=== PATIENT | female | born 1935 | race Caucasian/White ===

== ENCOUNTER → 2019-01-15 13:27 | Outpatient (CLI) | payer MEDICARE, OTHER, SELFPAY | PROVIDERS: Visit Provider Physician Assistant | DX: N39.0 Urinary tract infection, site not specified (principal) | CPT/HCPCS: 87077; 87086; 87186 ==

== ENCOUNTER → 2019-03-01 10:11 | Outpatient (CLI) | payer MEDICARE, OTHER, SELFPAY | PROVIDERS: Visit Provider Physician Assistant | DX: N39.0 Urinary tract infection, site not specified (principal) | CPT/HCPCS: 87077; 87086; 87186 ==

== ENCOUNTER 2019-05-15 20:59 | Emergency (ER) | payer MEDICARE, OTHER, SELFPAY ==
[2019-05-15 21:08] VITALS: BP 166/68; PULSE 74; RESP 15; TEMP 36.6; O2SAT 99; BMI 31.7
[2019-05-15 21:37] LABS: Bacteria Urine Many (>30); RBC Urine 1-5/HPF (0-5/HPF); Squamous Epithelial Cell Urine 1-5 /HPF (0-5/HPF); WBC Urine >100/HPF (0-5/HPF)
[2019-05-15 21:38] LABS: Culture Indicated Urine Specimen Cultured
--- NOTE | 2019-05-15 22:11 | ED_ITS ---
HPI - Female Genitourinary General Chief complaint: Urogenital-Female Stated complaint: thinks has a UTI Time Seen by Provider: 05/15/19 21:14 Source: patient Mode of arrival: ambulatory Limitations: no limitations History of Present Illness HPI Narrative: 83-year-old female nonsmoker with noncontributory medical history presents with a few days of urinary frequency, burning, urgency. She denies systemic findings such as fever, chills, nausea, vomiting or back pain. She gets urinary tract infections every few years and states this feels the same. She does request an extended duration of antibiotics as the last time the initial prescription was for 7 days and she had to have it refilled, also she is getting ready to take a cruise and will not have access to her physician or a pharmacy to get a refill MD Complaint: dysuria and UTI Female Urogenital Radiation: Suprapubic Severity: mild Quality: Aching Relieving factors: none Exacerbating factors: urination Urinary symptoms: Difficulty Urinating, Dysuria, Frequency and Urgency Related Data Home Medications Medication Instructions Recorded Confirmed Alendronate Sodium (FOSAMAX) 0 PO WEEKLY #0 04/12/07 03/01/19 CALCIUM CARBONATE/VITAMIN D3 0 PO * [place] DOSE/FREQUENCY #0 04/12/07 03/01/19 (Oyster Shell Calcium-Vit D Tab) LEVOTHYROXINE SODIUM (Synthroid) 0.025 mg PO EVERY DAY #0 04/12/07 03/01/19 MULTIVITAMIN (Multivitamin 1 cap PO EVERY DAY #0 04/12/07 03/01/19 -) [BILBERRY] PO Q DAY #0 04/12/07 03/01/19 [CINNEMON] PO Q DAY #0 04/12/07 03/01/19 [FISH OIL] PO Q DAY #0 04/12/07 03/01/19 [GARLIC PILLS] PO Q DAY #0 04/12/07 03/01/19 Previous Rx's Medication Instructions Recorded nitrofurantoin macrocrystal 100 mg PO BID 7 Days #0 cap 10/16/17 [Macrodantin] nitrofurantoin monohyd/m-cryst 100 mg PO BID #12 cap 11/15/17 [Macrobid] cephalexin [Keflex] 500 mg PO QID 10 Days #40 cap 05/15/19 Allergies Allergy/AdvReac Type Severity Reaction Status Date / Time ciprofloxacin [From CIPRO] Allergy Unknown RED FACE Verified 05/15/19 21:08 Quinolones [QUINOLONES] Allergy Unknown Verified 05/15/19 21:08 CODIENE AdvReac Unknown NAUSEA/VOMI Uncoded 03/01/19 10:03 TING Review of Systems Constitutional Constitutional: Denies chills, Denies fatigue, Denies fever(s), Denies frequent falls, Denies lethargy and Denies weakness Eyes Eyes: Denies change in vision, Denies eye discharge, Denies irritation and Denies loss of vision ENT Ears, Nose, Mouth, and Throat: Denies change in voice, Denies dizziness, Denies neck pain, Denies sore throat and Denies throat swelling Cardiovascular Cardiovascular: Denies chest pain, Denies irregular heart rhythm, Denies lightheadedness, Denies palpitations, Denies dyspnea, Denies dyspnea on exertion and Denies orthopnea Respiratory Respiratory: Denies cough, Denies dyspnea, Denies dyspnea on exertion and Denies wheezing Gastrointestinal Gastrointestinal: Denies abdominal pain, Denies change in bowel habits, Denies diarrhea, Denies nausea and Denies vomiting Genitourinary Genitourinary: Denies hematuria, Reports urinary frequency, Reports dysuria, Denies flank pain, Denies urinary incontinence and Reports urinary urgency Musculoskeletal Musculoskeletal: Denies back pain, Denies muscle weakness, Denies neck pain, Denies numbness and Denies tingling Integumentary/Breasts Skin/Breast: Denies pruritus, Denies erythema, Denies rash and Denies wounds Neurologic Neurologic: Denies behavioral changes, Denies confusion, Denies dizziness, Denies frequent falls, Denies loss of vision, Denies numbness, Denies tingling and Denies weakness Psychiatric Psychiatric: Denies anxiety, Denies behavioral changes, Denies confusion, Denies depression, Denies homicidal ideation and Denies suicidal ideation Endocrine Endocrine: Denies fatigue, Denies flushing and Denies palpitations Hematologic/Lymphatic Hematologic/Lymphatic: Denies easy bruising Allergic/Immunologic Allergic/Immunologic: Denies urticaria, Denies throat swelling and Denies wh eezing PFSH Social History Smoking Status: Never smoker Social History Smoking Status: Never smoker Exam Narrative Exam Narrative: GEN: AOx3 and in mild distress EYES: Pupils are equal, round, and reactive to light and accommodation. Extraoccular muscles are intact bilaterally. There is no subconjunctival hemorrhage or exudate. CHEST: Lungs are clear to auscultation bilaterally and free of wheezes, rales, or rhonchi. Heart rate is regular rhythm, there are no murmurs, clicks, rubs, or gallops. There is no chest wall tenderness. ABD: Abdomen is soft and nontender. There is no guarding or rebound. Bowel sounds are normal in all 4 quadrants. There is no mass or organomegaly. EXT: Full painless ROM of all extremities with no loss of sensation or strength. SKIN: Warm, pink, and dry. No erythema or rash Initial Vital Signs Initial Vital Signs: Vital Signs Temperature 97.8 F 05/15/19 21:08 Pulse Rate 74 05/15/19 21:08 Respiratory Rate 15 05/15/19 21:08 Blood Pressure 166/68 H 05/15/19 21:08 Pulse Oximetry 99 05/15/19 21:08 Course Orders Ordered: ED Orders 05/15/19 20:28 Urine Culture Stat Urine Microscopic Stat Discontinued Medications Cefazolin Sodium (Keflex 250 Mg Prepack) 1 bottle MISC SEEINSTR ONE Stop: 05/15/19 22:15 Last Admin: 05/15/19 22:34 Dose: 1 1000units Documented by: BONNIEOTEBess Vital Signs Vital signs: Vital Signs - 8 hr 05/15/19 22:48 Pulse Rate 69 Blood Pressure 142/75 H Pulse Oximetry 98 MDM - Female Genitourinary Lab Data Labs: Lab Results 05/15/19 Range/Units 20:28 Urine RBC 1-5/hpf (0-5/HPF) Urine WBC >100/hpf H (0-5/HPF) Ur Squamous Epith Cells 1-5 /hpf (0-5/HPF) Urine Bacteria Many (>30) H (None) Ur Culture Indicated? Specimen cultured Urine Dip Bedside Urine Glucose Negative Bedside Urine Bilirubin - Negative Bedside Urine Ketone - Negative Urine Specific [place] 1.020 Bedside Urine Occult Blood +/- Bedside Urine pH 5.5 Bedside Urine Protein +/- 15 Bedside Urine Urobilinogen +/- 1mg Bedside Urine Nitrite + Positive Bedside Urine Leukocytes +++ 500 Esterase Discharge Plan Departure Patient Disposition: Home Clinical Impression: UTI (urinary tract infection) Qualifiers: Urinary tract infection type: acute cystitis Hematuria presence: without hematuria Qualified Code(s): N30.00 - Acute cystitis without hematuria Discharge Date/Time: 05/15/19 22:49 Instructions: DI for Urinary Tract Infection (UTI) Activity Restrictions/Additional Instructions: *You have been diagnosed with [acute urinary tract infection] *What to do: *Take medications as directed *Follow up with your primary care provider in 2-3 days, call for an appointment. Let them know you were seen in the Emergency Department and that we ask that you be seen in follow up *Return to ER if you should have any new, worsening or concerning symptoms Prescriptions: New cephalexin [Keflex] 500 mg capsule 500 mg PO QID 10 Days Qty: 40 RF: 0 No Action Alendronate Sodium (FOSAMAX) 0 PO WEEKLY Qty: 0 RF: 0 CALCIUM CARBONATE/VITAMIN D3 (Oyster Shell Calcium-Vit D Tab) 0 PO * [place] DOSE/FREQUENCY Qty: 0 RF: 0 LEVOTHYROXINE SODIUM (Synthroid) 0.025 mg PO EVERY DAY Qty: 0 RF: 0 MULTIVITAMIN (Multivitamin -) 1 cap PO EVERY DAY Qty: 0 RF: 0 [BILBERRY] PO Q DAY Qty: 0 RF: 0 [FISH OIL] PO Q DAY Qty: 0 RF: 0 [GARLIC PILLS] PO Q DAY Qty: 0 RF: 0 [CINNEMON] PO Q DAY Qty: 0 RF: 0 nitrofurantoin macrocrystal [Macrodantin] 100 MG capsule 100 mg PO BID 7 Days Qty: 0 RF: 0 nitrofurantoin monohyd/m-cryst [Macrobid] 100 MG capsule 100 mg PO BID Qty: 12 RF: 0
[2019-05-15] MEDS: cephALEXin 250 MG PREPACK 1 BOTTLE MISC (22:34)
[2019-05-15 22:48] VITALS: BP 142/75; PULSE 69; O2SAT 98
== END 2019-05-15 22:49 | disposition home or self-care (01) ==
PROVIDERS: Emergency Provider Emergency Medicine
DX: N30.00 Acute cystitis without hematuria (principal)
CPT/HCPCS: 81003; 81015; 87077; 87086; 87186; 99282; 99283

== ENCOUNTER → 2019-08-15 18:38 | Outpatient (CLI) | payer MEDICARE, OTHER, SELFPAY | PROVIDERS: Visit Provider Nurse Practitioner Family | DX: J02.9 Acute pharyngitis, unspecified (principal) | CPT/HCPCS: 87070 ==

== ENCOUNTER → 2021-01-18 10:49 | Outpatient (CLI) | payer MEDICARE, OTHER, SELFPAY | PROVIDERS: Visit Provider Physician Assistant | DX: N30.01 Acute cystitis with hematuria (principal) | CPT/HCPCS: 87086 ==

== ENCOUNTER → 2023-06-04 13:56 | Outpatient (CLI) | payer MEDICARE, OTHER, SELFPAY ==
--- NOTE | 2023-06-04 | DI.RAD.S_ITS ---
Bone Density Report Name: ROCKY CEDILLO Age: 87 Sex: Female Ethnicity: White Date of : 1935 Indication: postmenopausal; screening for osteoporosis; prior fracture; Referring Provider: QUINCY SANTILLAN Study: Bone densitometry was performed. Exam Date: June 04, 2023 Accession number: [id number] Bone Density: Region BMD T-score Z-score Classification AP Spine(L1, L3, L4) 1.096 0.4 3.3 Normal Femoral Neck (Left) 0.739 -1.0 1.5 Normal Total Hip (Left) 0.887 -0.4 1.9 Normal Femoral Neck (Right) 0.747 -0.9 1.6 Normal Total Hip (Right) 0.898 -0.4 2.0 Normal Total Hip Mean 0.892 -0.4 2.0 Normal World Health Organization criteria for BMD impression classify patients as: Normal (T-score at or above -1.0), Osteopenia (T-score between -1.0 and -2.5), or Osteoporosis (T-score at or below -2.5). 10-year Fracture Risk: FRAX not reported because: All T-scores for Spine Total, Hip Total, Femoral Neck at or above -1.0 Prior hip or vertebral fracture Impression: The patient has normal bone mass. The patient has risk factors, including: previous fracture. Discussion: INCREASED RISK OF FRACTURE DUE TO HISTORY OF FRACTURE. The patient's previous fracture puts the patient at high risk of a future fracture. In untreated patients, the risk of osteoporotic fracture increases approximately two-fold for each 1.0 SD decrease in T-score. Low bone density is not the only risk factor for fracture; also consider factors such as patient's age, frailty or poor health, risk of falling, risk of injury, previous osteoporotic fracture, family history of osteoporosis, cigarette smoking, low body weight, etc. Not everyone with a low trauma fracture has osteoporosis; osteomalacia and other metabolic bone disorders should also be considered. Patients who have osteoporosis should be evaluated for specific diseases and conditions (secondary causes) that may cause or contribute to bone loss and fracture risk. National Osteoporosis Foundation (NOF) recommends pharmacologic intervention for patients with a prior hip or vertebral fracture regardless of BMD T-score. The patient should follow a healthful lifestyle (good nutrition with adequate calcium and vitamin D, and appropriate weight-bearing exercise). Follow-Up: Consider a repeat BMD and Vertebral Fracture Assessment (VFA) exam in 2 years or sooner if medically necessary, to reassess this patient's status. Reported by: DARIANA RUBY M.D. on 06/04/2023 3:20:00 PM.
== END ==
PROVIDERS: Referring Provider Physical Medicine & Rehabilitation; Visit Provider Physical Medicine & Rehabilitation
DX: M81.0 Age-related osteoporosis without current pathological fracture (principal); Z87.311 Personal history of (healed) other pathological fracture; Z78.0 Asymptomatic menopausal state
CPT/HCPCS: 77080